=== PATIENT | male | born 1990 | race Hispanic/Latino ===

== ENCOUNTER 2024-06-08 09:35 | Emergency (ER) | payer SELFPAY ==
[~2024-06-08] VITALS: Ht 162.6 cm; Wt 72.6 kg
[2024-06-08] MEDS: Solu-medROL 125MG VIAL IVP ONE (10:05)
[2024-06-08] MEDS: LACTATED RINGERS 1000ML 1,000 ML IV ONE (10:05)
[2024-06-08] MEDS: FAMOTIDINE 20MG VIAL IV ONE (10:05)
--- NOTE | 2024-06-08 10:18 | HMCIMG ---
CHEST 1VW HISTORY: Cough COMPARISON: None FINDINGS: A frontal projection of the chest was obtained. No acute pulmonary infiltrates is seen. The heart is normal in size. Prominent interstitial markings are seen. No evidence of aortic calcification is seen. IMPRESSION: 1. No acute pulmonary infiltrate is seen.
[2024-06-08] MEDS ORDERED: PRED20TA3 PO (10:41)
[2024-06-08] MEDS ORDERED: ZYRTD PO (10:41)
--- NOTE | 2024-06-08 10:42 | ERN ---
General Chief Complaint: Allergic Reaction Stated Complaint: FEELS "SWOLLEN" Time Seen by MD: 09:45 History of Present Illness Initial Comments 33-year-old male who presents for allergic reaction. Otherwise healthy male. Brought in by EMS for allergic reaction. He reports that this morning about 3 hours ago he was using bleach, if he reports that he accidentally inhaled some of the fumes and his lips and tongue swelled up. EMS reports that his tongue was swollen when they arrived. They gave some Benadryl. Since then the swelling has reduced. He does have a very dry cough that started with the inhalation. She denies any hives, chest pain, dyspnea, stridor neck swelling or other. He did receive some Benadryl prior to the arrival in the field. Allergies: Coded Allergies: No Known Drug Allergies (Unverified Allergy, Unknown, 06/08/24) Past Medical History Past Medical History: Hypertension Past Surgical History: None ROS Dictation CONSTITUTIONAL: No chills, no fever, no weakness, no diaphoresis, no malaise. HEAD/FACE: Swollen mouth EENT: No eye pain, no blurred vision, no tearing, no double vision, no ear pain, no ear discharge, no nose pain, no nasal congestion, no throat pain, no throat swelling, no mouth pain. RESPIRATORY: No cough, no orthopnea, no SOB, no stridor, no wheezing. CARDIOVASCULAR: No chest pain, no edema, no palpitations, no syncope. GASTROINTESTINAL/ABDOMINAL: No abdominal pain, no constipation, no diarrhea, no nausea, no vomiting. GENITOURINARY: No abnormal discharge, no dysuria, no frequent urination, no hematuria. No complaints of pain in the genitals. MUSCULOSKELETAL: No back pain, no gout, no joint pain, no joint swelling, no muscle pain, no muscle stiffness, no neck pain. INTEGUMENTARY: No change in color, no change in hair/nails, no dryness, no lesion, no lumps, no rash. NEUROLOGICAL/PSYCH: No anxiety, not depressed, no emotional problem, no headache, no numbness, no pre-existing deficit, no history of seizures, no tremors, no weakness. HEMATOLOGIC/LYMPHATIC: Not anemic, no history of blood clots, no apparent bleeding, no bruising, glands not swollen. All Systems Negative, Except as Noted. Physical Exam Physical Exam Dictation VITAL SIGNS: Reviewed. GENERAL APPEARANCE: Alert, oriented x3, no acute distress HEAD AND FACE: Non-traumatic. EYES: PERRL, pink conjunctivas, eyelid no trauma, anterior chamber clear. EARS: Pinnas intact and no signs of trauma or erythema. Ear canals clear and no discharge. TMs no erythema. NOSE: No discharge, no bleeding. OROPHARYNX: Mouth normal, teeth no caries, tongue pink. Pharynx clear, no erythema. Tonsils no exudates, no abscesses noted. Mucous membrane moist. NECK: Supple, non-tender, no thyromegaly, no masses, no JVD, no bruits. BREAST: Deferred. CHEST: No tenderness, no crepitus, no paradoxical movement, no retractions. LUNGS: Clear, well-ventilated, symmetric, no rales, no wheezing, no rhonchi, no stridor, good breath sounds bilaterally. HEART: Regular rate, regular rhythm, no murmur, no gallops. VASCULAR: No peripheral edema. ABDOMEN: Soft, positive bowel sounds, nondistended, no guarding, nontender, no rebound, no masses no hepatomegaly, no splenomegaly, no Bates's sign, no hernias. RECTAL: Deferred. GENITAL: Deferred. NEUROLOGICAL: Normal speech, gross motor function intact, gross sensory function intact. MUSCULOSKELETAL: Neck nontender, full range of motion, back nontender, full range of motion. EXTREMITIES: Nontender, full range of motion. SKIN: Color pink, dry, no turgor, no rash, no lacerations, no abrasions, no contusions. LYMPHATICS: Deferred. [facility] CC: Face swelling, tongue swelling status post inhalation exposure Historian: Patient Comorbidities: None Limitations by social determinants of health: None Differential diagnosis: Allergic, anaphylaxis, inhalation exposure, other. Vital signs are stable Clinically patient has no swelling that I can observe. he is in no distress with clear lungs. Vitals are stable. Treatment by EMS prior to arrival: 50 mg Benadryl CXR (independently interpreted by me ): No cardiomegaly pleural effusions or focal infiltrates. Treatment in ED: Patient received 1 L normal saline, IV Solu-Medrol, famotidine. Patient was monitored for 90 minutes. Improving symptoms. Plan: There is no signs of anaphylaxis or significant infection. Respiratory distress. We will DC with a prescription for Solu-Medrol and recommend PCP follow up. ED Course Orders Procedure Category Date Status Time Methylprednisolone PHA 06/08/24 Complete Succ 125mg (Solu-Medr 10:00 Famotidine 20mg Vial PHA 06/08/24 Complete (Pepcid 20mg Vial) 10:00 Lactated Ringers PHA 06/08/24 Complete 1000ml (Lactated 10:00 Chest 1vw RAD 06/08/24 Resulted 09:47 Current Medications Medications (Trade) Dose Ordered Sig/Melvin Route PRN Reason Start Time Stop Time Status Last Admin Dose Admin Famotidine (Pepcid 20mg Vial) 20 mg ONCE ONCE IV 06/08/24 10:00 06/08/24 10:01 DC 06/08/24 10:05 Lactated Ringer's 1,000 ml @ 0 mls/hr ONCE ONCE IV 06/08/24 10:00 06/08/24 10:01 DC 06/08/24 10:05 Methylprednisolone Sodium Succinate (Solu-medROL 125MG) 125 mg ONCE ONCE IVP 06/08/24 10:00 06/08/24 10:01 DC 06/08/24 10:05 Vital Signs Date Time Temp Pulse Resp B/P (MAP) Pulse Ox O2 Delivery O2 Flow Rate FiO2 06/08/24 10:11 98.4 114 19 155/99 99 Room Air* 0 21 DX & DISP Disposition: Discharge Departure Impression: Primary Impression: Allergic reaction Additional Impression: Inhalation of noxious fumes Condition: Stable Scripts P-Ephed HCl/Cetirizine HCl (Zyrtec-D 12 Hr) 5 Mg-120 Mg Srtab 1 TAB PO BID for allergy symptoms for 5 Days, #10 TAB 0 Refills Prov: MALATHI CHILDS DO 06/08/24 Prednisone (Prednisone) 20 Mg Tablet 1 TAB PO BID for 5 Days, #10 TAB 0 Refills Prov: MALATHI CHILDS DO 06/08/24 Additional Instructions: Your symptoms are consistent with an allergic reaction. You received IV fluids, IV steroids, and IV histamine blockers here in the ER. Your chest x-ray is clear. Your lung sounds are clear. Your vital signs are normal. I have prescribed prednisone, which is an anti-inflammatory steroid. Take twice per day for the next 3-5 days depending on symptoms. I have prescribed Zyrtec which is an antihistamine. Take twice per day for the next 3-5 days depending on symptoms. Please immediately return to the emergency department if you develop any respiratory distress, significant swelling, or any other concerning symptom. MALATHI CHILDS DO Jun 08, 2024 10:42
[2024-06-08 11:16] VITALS: BP 137/82; PULSE 91; RESP 16; TEMP 98.4; O2SAT 98
== END 2024-06-08 11:19 | disposition home or self-care (01) ==
LOC: EDH 09:35
DX: T78.40XA Allergy, unspecified, initial encounter (principal); T59.811A Toxic effect of smoke, accidental (unintentional), initial encounter; I10 Essential (primary) hypertension; Y92.89 Other specified places as the place of occurrence of the external cause
CPT/HCPCS: 99284; 96374; 71045; 96361; 96375; J2919; J7120; J3490